=== PATIENT | male | born 1975 | race Caucasian/White ===

== ENCOUNTER 2024-03-28 05:31 | Day surgery (SDC) | payer BC, OTHER ==
[2024-03-28] MEDS ORDERED: fentaNYL 100 MCG/2 ML SDV IV ONE (05:32)
[2024-03-28] MEDS ORDERED: Midazolam 1 MG/ML 2 ML SDV IV ONE (05:32)
[2024-03-28] MEDS: Dextrose 5%-0.45% NaCl 1,000 ML IV SCH (05:53)
[2024-03-28] MEDS ORDERED: Midazolam 1 MG/ML 2 ML SDV ONE (06:03)
[2024-03-28] MEDS ORDERED: fentaNYL 100 MCG/2 ML SDV ONE (06:04)
[2024-03-28] MEDS: fentaNYL 100 MCG/2 ML SDV IV ONE ×4 (06:28→06:38)
[2024-03-28] MEDS: Midazolam 1 MG/ML 2 ML SDV IV ONE ×4 (06:29→06:35)
== END 2024-03-28 07:55 | disposition home or self-care (01) ==
LOC: DL.ENDO 05:31
PROVIDERS: ATTEND Internal Medicine Gastroenterology
DX: Z12.11 Encounter for screening for malignant neoplasm of colon (principal); K57.30 Diverticulosis of large intestine without perforation or abscess without bleeding
CPT/HCPCS: 45378; J2250; J3010; J7799